=== PATIENT | female | born 1955 | race Caucasian/White ===

== ENCOUNTER → 2016-06-28 | Outpatient (CLI) | payer OTHER ==
--- NOTE | 2016-06-28 13:52 | US ---
Ultrasound right breast 1307 hours. History: Possible palpable nodule upper right breast on physical exam. Previous history of breast can cer on the right. Findings: Ultrasound of the upper right breast demonstrates normal underlying breast parenchymal tiss ue without evidence of significant solid or cystic mass. The area of palpable concern at the 12 o'marybel ck position as well as at the 1 to 2 o'clock position appears to correspond with dense underlying mark ast parenchymal tissue. The metallic fiducials are also visualized within the breast tissue during ac tive scanning. Impression: Benign findings ultrasound right breast with dense breast parenchymal tissue correspondin g with areas of palpable concern. BI-RADS 2 Routine annual mammographic followup is recommended one year since the most recent complete mammograp hic study (March,) The results of this study were reviewed with the patient. Clinical followup is recommended on all palpable nodules. Despite negative or benign imaging, if the palpable abnormality increases in size, additional imaging followup may be necessary or possibly samia gical consultation.
== END ==
LOC: FIMAGING 12:56
PROVIDERS: ATTEND Obstetrics & Gynecology
DX: N63 Unspecified lump in breast (principal)

== ENCOUNTER → 2017-07-05 | Outpatient (CLI) | payer OTHER | LOC: FIMAGING 14:52 | PROVIDERS: ATTEND Obstetrics & Gynecology | DX: Z12.31 Encounter for screening mammogram for malignant neoplasm of breast (principal) ==

== ENCOUNTER → 2018-09-02 | Outpatient (CLI) | payer OTHER | LOC: FIMAGING 16:13 | PROVIDERS: ATTEND Internal Medicine Rheumatology | DX: M06.9 Rheumatoid arthritis, unspecified (principal) ==

== ENCOUNTER → 2018-09-03 | Outpatient (CLI) | payer OTHER | LOC: FIMAGING 10:35 | PROVIDERS: ATTEND Obstetrics & Gynecology | DX: Z12.31 Encounter for screening mammogram for malignant neoplasm of breast (principal); Z85.3 Personal history of malignant neoplasm of breast ==